=== PATIENT | male | born 1950 | race African-American/Black ===

== ENCOUNTER 2017-03-14 16:23 | Inpatient (IN) ==
[2017-03-14] MEDS ORDERED: HEPARIN 25,000 UNITS/D5W 25,000 UNIT/250 ML IV.SOLN IV SCH (18:45)
[2017-03-14 19:37] LABS: MANUAL DIFF NEEDED? NO
[2017-03-14 19:41] LABS: BASO% 0.5 % (0.0-0.8); EOS# 0.12 X1000 (0.0-0.7); EOS% 3.3 % (0.0-10.0); HEMATOCRIT 37.3 % (42.0-52.0); HEMOGLOBIN 12.5 g/dL (14.0-18.0); LYMPH# 1.19 X1000 (1.2-3.4); LYMPH% 32.3 % (20.5-51.1); MCH 32.6 PG (27-31); MCHC 33.5 g/dL (33-37); MCV 97.4 FL (81-99); MONO# 0.65 X1000 (0.11-0.59); MONO% 17.7 % (1.7-9.3); MPV 11.8 FL (7.4-10.4); NEUT% 46.2 % (42.2-75.2); PLT 133 X1000 (130-400); RBC 3.83 XMIL (4.7-6.1)
[2017-03-14] MEDS ORDERED: HEPARIN IV ONE (20:08)
[2017-03-14 20:16] LABS: ALBUMIN 3.6 g/dL (3.5-5.0); CALCIUM 8.7 mg/dL (8.8-10.2); POTASSIUM 4.1 mmol/L (3.5-5.1); TOTAL BILIRUBIN 0.28 mg/dL (0.20-1.00); TOTAL PROTEIN 7.2 g/dL (6.3-8.3)
[2017-03-14] MEDS ORDERED: FLOMAX PO SCH (21:00)
--- NOTE | 2017-03-14 22:07 | HISTORY AND PHYSICAL ---
CHIEF COMPLAINT: Right foot pain for the last 3 weeks. HISTORY OF PRESENT ILLNESS: He is a 67-year-old pleasant male who was evaluated in the emergency room last week. He was sent home on gout medicines. He had dialysis today. He came to my office today with right foot pain at resting. He had a discoloration, darkness on the right 2nd toe as well as 3rd and 4th toe. I could not feel any pulses on palpation. I could not hear even with the Doppler. X-rays of the right foot showed significant arteriosclerosis. He also had a uric acid level done which was normal. At this time, it looks like an ischemic foot based on the clinical exam. He is getting arterial Doppler studies as well as CT aortogram with runoff. Started on IV heparin. I also consulted Dr. Matthew for kidney dialysis. As a result, a hospital admission was warranted. PAST MEDICAL HISTORY: 1. BPH. 2. Chronic renal failure. End-stage kidney disease on dialysis. 3. Coronary artery disease. Chronically occluded right coronary artery. 4. Depression. 5. Type 2 diabetes. 6. Hyperlipidemia. 7. Hypertension. 8. Monoclonal gammopathy of unknown significance. 9. Foot drop on the left. 10. Peripheral vascular disease. PAST SURGICAL HISTORY: Stents in the heart, penile implant, AV fistula in the left forearm, cholecystectomy. MEDICATIONS: Bumex 1 mg p.o. b.i.d., isosorbide 30 mg daily, Lasix 40 daily, Flomax 0.4 mg at bedtime, Pravachol 40 mg daily, allopurinol 100 mg daily, aspirin 80 mg daily, Pletal 50 daily, Plavix 75 daily, PhosLo 667 daily, lisinopril 20 daily. Vitamin D 50,000 units once a week. ALLERGIES: Not known. SOCIAL HISTORY: . 5 children. Lives with daughter. No smoking. No alcohol. Retired. FAMILY HISTORY: Father of dementia at 88. Mom of heart disease 79. HEALTH MAINTENANCE: Flu vaccine 2005. Last prostate exam 2014. EGD and colonoscopy [address] Ortiz. REVIEW OF SYSTEMS: HEENT: No sore throat. Neck: No goiter. No lymphadenopathy. No bruits. Cardiopulmonary: No chest pain, shortness of breath, PND, orthopnea. GI: No nausea, vomiting, abdominal pain. Abdominal bloating got better after laparoscopic cholecystectomy. : History of hesitancy, frequency, controlled. Extremities: Right foot pain, decreased pulses. No claudication symptoms prior. No back pain. Neurologic: No focal symptoms or weakness or seizures. PHYSICAL EXAMINATION: VITAL SIGNS: Afebrile, vitals are stable. 5 feet 8, 156 pounds. HEENT: Atraumatic, normocephalic. Pupils equal, reactive to light. TMs are normal. Nose and throat within normal limits. NECK: Supple. No lymphadenopathy. No goiter. CHEST: Bilateral air entry. No rales, no wheezing. HEART: Sounds are regular. ABDOMEN: Belly is soft, nontender. Good bowel sounds. No masses palpable. RECTAL: Deferred. EXTREMITIES: Discoloration, pain right 2nd, 3rd, 4th toes, decreased pulses. Left foot is normal. NEUROLOGICAL: No obvious neurological deficits noted. INVESTIGATIONS: CBC: White cell count 3.6, hematocrit 37, platelets 133,000. SMA7: Creatinine 5. Glucose 127. LFTs were normal. X-ray of the right foot: No acute bony injury except arteriosclerosis noted. Uric acid 1.9. ASSESSMENT AND PLAN: 1. A 67-year-old male, admitted to the hospital with right ischemic foot based on the clinical symptoms. Plan is arterial Doppler studies in the morning. CT aortogram with runoff. In the meantime, aspirin, Pletal and IV heparin. 2. Benign prostatic hypertrophy, on Flomax. 3. Hyperlipidemia, on Pravachol. 4. Chronic ischemic cardiomyopathy. Continue on Prinivil, Plavix. 5. Chronic kidney disease, on calcium acetate and vitamin D. 6. Gout on allopurinol. 7. Coronary artery disease. Continue on Plavix, isosorbide. We will follow up. cc: Carlos Flores MD
[2017-03-14] MEDS: PRAVACHOL PO SCH (22:34)
[2017-03-15] MEDS ORDERED: HEPARIN 25,000 UNITS/D5W 25,000 UNIT/250 ML IV.SOLN IV SCH ×3 (05:36→19:00)
[2017-03-15 05:52] LABS: HDL 67 mg/dL (35-55); LDL 60 mg/dL; TRIGLYCERIDES 102 mg/dL (39-160); VLDL 20 mg/dL
[2017-03-15 07:43] LABS: ALBUMIN 3.6 g/dL (3.5-5.0); CALCIUM 10.3 mg/dL (8.8-10.2); POTASSIUM 4.8 mmol/L (3.5-5.1)
--- NOTE | 2017-03-15 08:16 | Diag Imaging Result Doc PS360 ---
CHEST-2 VIEWS - 03/15/2017 INDICATION: Hypoxia COMPARISON: 09/08/2016 FINDINGS: There are trace pleural effusions, decreased since the prior exam. Heart size and pulmonary vascularity is normal. No focal infiltrates, pneumothorax, or pleural effusion. IMPRESSION: Trace pleural effusions, improved from prior. Electronically signed by Truong Cardona 03/15/2017 8:13 AM
--- NOTE | 2017-03-15 09:12 | Diag Imaging Result Doc PS360 ---
EXAM: ANGIOGRAM/AORTA W/RUNOFF COMPARISON: CT abdomen and pelvis without contrast dated 02/12/2015. FINDINGS: There is diffuse aortoiliac atherosclerotic calcification that becomes severe at the distal aorta and at the iliac arteries. There is no aortic aneurysm. The common iliac arteries are heavily calcified. There is moderate stenosis throughout the common iliac arteries and extensive internal iliac artery stenosis. There is also extensive external iliac artery atherosclerotic disease with patchy moderate stenosis. There is patchy other sclerotic disease throughout the SMA with multifocal mild to moderate narrowing. However, remains patent. The GERMAN is patent. There is extensive atherosclerotic disease involving the renal arteries that is worst on the left where there is multifocal moderate to severe stenosis. There is celiac artery atherosclerotic calcification with focal moderate stenosis at its origin. There has been an interval cholecystectomy. There is uncomplicated diverticulosis coli. The abdomen and pelvis are essentially stable as compared to the previous study. Right: There is extensive atherosclerotic disease involving all of the arteries of the right lower extremity. There is intermittent moderate to severe stenosis involving the common femoral artery and superficial femoral artery and there is subtotal occlusion of the distal common femoral artery. There is extensive atherosclerotic disease involving the popliteal artery with multifocal severe stenosis and subtotal occlusion. The anterior tibial artery is completely occluded throughout its course. The posterior tibial artery is largely occluded and heavily calcified throughout a majority of its course. It appears to be reconstituted at the level of the ankle. The peroneal artery appears to remain patent throughout its course but is diminutive distally. Left: There is extensive ethmoid disease involving the arteries of the left lower extremity with intermittent moderate to severe stenosis throughout the courses of the common femoral artery and superficial femoral artery. There is patchy total two subtotal occlusion involving the distal superficial femoral artery with intermittent reconstitution. There is very severe popliteal artery atherosclerotic disease with multifocal subtotal to complete occlusion the anterior tibial artery becomes completely occluded at the distal calf and the dorsalis pedis is supplied via collateralization from the peroneal artery. The posterior tibial artery is heavily calcified and appears to be occluded throughout most of its course. It is probably reconstituted at the ankle. There is extensive peroneal artery atherosclerotic calcification with intermittent occlusion and reconstitution. IMPRESSION: Extremely severe aortoiliac and bilateral lower extremity atherosclerotic disease as detailed above. Electronically signed by Aj Alonzo 03/15/2017 9:10 AM
[2017-03-15] MEDS: PRINIVIL PO SCH (09:18)
[2017-03-15] MEDS: ROCALTROL PO SCH (09:18)
[2017-03-15] MEDS: PHOSLO PO SCH (09:18)
[2017-03-15] MEDS: PLETAL PO SCH (09:18)
[2017-03-15] MEDS: ZYLOPRIM PO SCH (09:18)
[2017-03-15] MEDS: ASPIRIN PO SCH (09:18)
[2017-03-15] MEDS: PLAVIX PO SCH (09:19)
--- NOTE | 2017-03-15 13:06 | CONSULTATION ---
DATE OF CONSULTATION: 03/15/2017 TIME SEEN: 0820. REASON FOR ADMISSION: Right foot pain for the past 3 weeks with decreased circulation. REASON FOR CONSULTATION: Assistance with medical management and end-stage renal disease. CONSULTING PHYSICIAN: Dr. Flores. HISTORY OF PRESENT ILLNESS: Mr. Palm is a 67-year-old, male who is known to our outpatient services for hemodialysis on Tuesday, Tuesday, and Tuesday at the [facility]. Patient has been followed by Dr. Flores in the past. Unfortunately, last week, he presented to the emergency room department for ongoing right foot pain. Patient was sent home on gout medications and felt that he was not getting any better. He presented to Dr. Flores's office yesterday afternoon and was found to have discoloration of his right foot and darkening of his 2nd, 3rd, and 4th toes on the right. These were cool to touch. They were no pulses palpable and not obtained per Doppler. He had an x-ray of the right foot indicating arterial sclerosis. Uric acid level was drawn which was normal. Subsequently, due to his ischemic foot on clinical evaluation, the patient was admitted to the hospital for further evaluation. He is currently getting arterial Doppler studies as well as a CT arteriogram runoff. Started on IV heparin during this hospitalization. PAST MEDICAL HISTORY: End-stage renal disease with hemodialysis on Tuesday, Tuesday, Tuesday at the [facility]. BPH, coronary artery disease, chronically occluded right coronary artery, depression, type 2 diabetes, hyperlipidemia, hypertension, monoclonal gammopathy of unknown significance, footdrop on the left, peripheral vascular disease, anemia of chronic disease, osteodystrophy of chronic disease. PREVIOUS SURGICAL HISTORY: Cardiac stents, penile implant, AV fistula to the left forearm, and a cholecystectomy. SOCIAL HISTORY: He is . He has children who are attentive to his care. He lives with his daughter. Denies any tobacco, alcohol, or illicit drug use. FAMILY HISTORY: Father of dementia at 88. Mother of heart disease at 79. CURRENT ALLERGIES: Listed as no known drug allergies. HOME MEDICATIONS: Bumex, isosorbide, Lasix, Flomax, Pravachol, allopurinol, aspirin, Pletal, Plavix, lisinopril, vitamin D 50. Patient also receives Rocaltrol, Ferrlecit, protein X, and IV iron as indicated at the outpatient clinic by labs. REVIEW OF SYSTEMS: Times 10 with pertinent positives listed above in the HPI. VITAL SIGNS: Most recent vital signs are temperature of 98 degrees, blood pressure 162/91, heart rate 106, respirations 20. He is on room air. Last recorded saturation is 100% . He has had 79 in. He has had 0 out with need for dialysis assistance on his routine basis. LABORATORY DATA: His labs this a.m., sodium 145, potassium 4.8, chloride is 101 , CO2 24, BUN 36, creatinine 6.3, glucose 71, anion gap of 20, calcium 10.3, phosphorus 6.9, albumin 3.6. His previous hemoglobin was 12.5, with hematocrit 37.3, white count 3.68, with a platelet count of 133,000. His PTT is 56.4. PHYSICAL EXAMINATION: General: This is a 67-year-old, male. He is currently resting in a chair. He has no acute distress. Skin: Warm and dry. HEENT: Normocephalic, atraumatic. Conjunctivae pink. He has ADRIANA. Mucous membranes moist. Neck: Supple. Trachea midline. No JVD. Cardiovascular: Regular rate and rhythm. He does have a soft systolic murmur. No gallop. Lungs: Clear to auscultation anteriorly. Equal excursion on room air. Abdomen: Soft, round, nontender. Positive bowel sounds. Genitourinary: Not inspected. Minimal void with dialysis assist. Extremities: Has no edema. His right foot has darkened area with pain to the 2nd, 3rd, and 4th toes. Decreased pulses, remain cool to touch. Left foot is warm to touch. Normal pulse. Neurological: Alert and oriented x3. ASSESSMENT AND PLAN: 1. End-stage renal disease. Patient is due for his routine dialysis treatment in the morning. He did stay for his full treatment yesterday. No need for intervention today. 2. Ischemic right foot. The patient is scheduled for a CT aortogram with a runoff. He has been started on aspirin, Pletal, and intravenous heparin. 3. Electrolytes and acid-base balance. These remain stable. 4. Anemia. This remains stable. I would like to thank you for allowing us to follow with this patient. Seen, data reviewed, discussed with Roby Washington on 03/15/17. I agree with the above assessment and plan of care. rg Dictated by ASTRID Latham for Samuel Matthew MD cc: ASTRID Latham MD Jagan Reddy, MD [facility]
[2017-03-15] MEDS: NORCO-5 PO PRN ×2 (15:36→22:44)
--- NOTE | 2017-03-15 18:44 | PROGRESS NOTE ---
DATE: 03/15/2017 SUBJECTIVE: Complaints of right foot pain. REVIEW OF SYSTEMS: Complaints of deafness and right foot pain. Rest of the review of systems none reported. PHYSICAL EXAMINATION: Vital Signs: Stable. HEENT: Within normal limits. Neck: Supple. No lymphadenopathy. Chest: Clear. Heart: Sounds are regular. Abdomen: Belly is soft, nontender. Good bowel sounds. Extremities: Right foot is 2nd and 3rd ischemic. No pulses palpable. INVESTIGATIONS: SMA 7: Creatinine 6.3, calcium 10.3. LDL is 60. HDL 67. CT aortogram with runoff diffuse calcified disease, poor downstream. Anterior tibial artery on the right side is occluded. Arterial flow studies: TBI 0.07, right is worse than the left side. ASSESSMENT AND PLAN: Right ischemic foot mostly distal vessel disease. I do not think it is amenable for revascularization. Consult with Dr. Dyson. Continue with IV heparin, aspirin and Pletal and keep the LDL less than 70. Hyperlipidemia on Pravachol excellent. For pain controluse the [place] as needed and chronic kidney disease on vitamin D and hyperphosphatemia on PhosLo and coronary artery disease, stable. Gout on allopurinol. I discussed with Dr. Matthew. Will also discuss with Dr. Dyson and will follow up. cc: Carlos Flores MD [facility]
[2017-03-15] MEDS: PRAVACHOL PO SCH (20:31)
[2017-03-15] MEDS: FLOMAX PO SCH (20:31)
[2017-03-16 07:05] LABS: CALCIUM 9.2 mg/dL (8.8-10.2); POTASSIUM 4.6 mmol/L (3.5-5.1)
[2017-03-16] MEDS ORDERED: NS 2,000 ML MISC PRN (07:18)
--- NOTE | 2017-03-16 07:32 | CONSULTATION ---
DATE OF CONSULTATION: 03/16/2017 CHIEF COMPLAINT: Blue discolored right 2nd toe. HISTORY: This 67-year-old, -Swedish gentleman, with chronic kidney disease and on dialysis, presents with a 3-4 week history of pain in the 2nd, 3rd, and 4th toes of the right foot with bluish discoloration of the 2nd toe. He has a history of CKD 5, and on dialysis with a left upper arm fistula. He has coronary artery disease, type 2 diabetes, hyperlipidemia, hypertension, monoclonal gammopathy, and benign prostatic hypertrophy. MEDICATIONS: Listed and include Plavix, Pletal and aspirin. ALLERGIES: He has no known drug allergies. SOCIAL HISTORY: He is . FAMILY HISTORY: Pertinent for dementia and heart disease. REVIEW OF SYSTEMS: Primarily pertinent for the foot pain on the right. PHYSICAL EXAMINATION: Vital Signs: He is afebrile. Heart rate 56, blood pressure 163/81. No cervical adenopathy. Lungs: Bilateral breath sounds. Heart: Regular rate and rhythm. Abdomen is soft. Femoral pulses are present. He has a left upper arm fistula that is functioning well. He has no pedal pulses. He has bluish discoloration of the right 2nd toe. No ulceration is seen in either foot. On his aortogram, he has significant calcification in his peripheral arteries. His lower extremity arterial PVRs are significantly diminished below the knee with essentially flat line with this dig level. INTERPRETATION: Significant peripheral vascular disease with lower extremity arterial calcification. I do not think that revascularization will assist him at this time. His prognosis regarding his feet are poor. I would not recommend any intervention at this time. Platelet inhibition is appropriate. Pain relief is appropriate. Thanks for the opportunity to see him. cc: MD Carlos Garza MD
[2017-03-16] MEDS: PHOSLO PO SCH (08:47)
[2017-03-16] MEDS: HEPARIN 25,000 UNITS/D5W 25,000 UNIT/250 ML IV.SOLN IV SCH ×2 (08:48→19:16)
--- NOTE | 2017-03-16 08:52 | PROGRESS NOTE ---
DATE: 03/16/2017 SUBJECTIVE: The patient complains of right foot pain. He was started on [place]. I did discuss with Dr. Dyson. He did review the arterial flow studies as well as the CT angiographic. He is going for dialysis today. REVIEW OF SYSTEMS: Other than right foot pain, stable. PHYSICAL EXAMINATION: Vital Signs: On examination, he is afebrile, pulse is 56, blood pressure is 160/80, 99% on room air. HEENT: Examination within normal limits. Neck: Supple. No lymphadenopathy. Chest: Clear. Heart: Heart sounds are regular. Extremities: Right foot with decreased redness, pain, discoloration. LABORATORY DATA: SMA 7: Sodium 135, potassium 4.6, chloride 96, BUN 47, creatinine 7.5, glucose 115. LDL is 60. ASSESSMENT AND PLAN: 1. Right ischemic foot, not amenable for revascularization as per Dr. Dyson. Continue medical management. We will hold off with any further surgeries. Clinically, he is improving. Continue on [place], aspirin, Pletal, and intravenous heparin. 2. Chronic kidney disease, on dialysis. 3. Hopefully, he will be discharged on Tuesday. 4. Level of documentation is 25 minutes. cc: Carlos Flores MD
[2017-03-16] MEDS ORDERED: EMLA CREAM TOP ONE (09:22)
--- NOTE | 2017-03-16 10:02 | VASCULAR LAB ---
PROCEDURE NAME: Arterial Bilateral Legs - 03/15/2017 REFERRING PHYSICIAN: Carlos Flores MD. INTERPRETING PHYSICIAN: Jair Dyson MD. INDICATION: The patient has a discolored right second toe with pain. The patient is diabetic, hypertensive, smokes, and has kidney failure. FINDINGS: The right brachial pressure is 192. The pressures in the legs are artificially elevated. The PVRs are mildly diminished beginning at the calf level and flatline at the toe level. The pressures in the toes are very low, in the right great toe is 16 and in the left 28. The right toe-brachial index is 0.09, left toe-brachial index 0.15. INTERPRETATION: This study is consistent with severe peripheral vascular disease with decreased flow from the knee down. This flow is inadequate to heal wounds on either foot. cc: MD Carlos Garza MD
--- NOTE | 2017-03-16 10:15 | PROGRESS NOTE ---
DATE: 03/16/2017 TIME SEEN: 0815. SUBJECTIVE: Mr. Palm is resting quietly in bed. He is sitting up eating his breakfast. He denies chest pain or increased work of breathing. States that his foot does not hurt when it is elevated. Otherwise it throbs and has severe aching to it. OBJECTIVE: Vital signs: His most recent vital signs, temperature 97.7 degrees , blood pressure 163/81, heart rate 56, respirations 18. He is on room air. Last recorded saturation 99%. He has had 255 in, 400 out per void. Labs: Sodium 135, potassium 4.6, chloride 96, CO2 24, BUN 47, creatinine 7.5, glucose 115, anion gap 15, calcium 9.2, phosphorus 7.2, albumin 3. His hemoglobin was 12.5 on the 15th. PHYSICAL EXAMINATION: General: This is a 67-year-old male. He is currently sitting in bed. He is in no acute distress. Skin: Warm and dry. HEENT: Normocephalic, atraumatic. Conjunctivae pink. He has ADRIANA. Mucous membranes moist. Neck: Supple. Trachea midline. No JVD. Cardiovascular: Regular rate and rhythm. He has a soft systolic murmur. No gallop appreciated. Lungs: Clear to auscultation anteriorly. Equal excursion. On room air. Abdomen: Round, soft, nontender. Positive bowel sounds. Genitourinary: Not inspected. Minimal void with dialysis assist. Extremities: Have no edema. He has an AV fistula to the left upper arm. Palpable thrill. Lower extremities have no edema. Right foot has darkened area to the 2nd, 3rd, and 4th toe. Decreased pulses. Remains cool to touch. Left foot remains warm to touch. Good pulses. Neurological: Alert and oriented x3. ASSESSMENT AND PLAN: 1. End-stage renal disease. Patient is due for his routine dialysis treatment today. We will place him on a 2 K bath. He is to dialyze for 3.5 hours. We will attempt to pull him to his dry weight. He continues on IV heparin. We will hold his heparin on dialysis secondary to having another source. 2. Electrolytes and acid-base balance. These are stable. 3. Anemia. This is stable. 4. Ischemic right foot. This is currently being followed by Dr. Dyson and Dr. Flores. I would like to thank you for allowing us to follow with this patient. Seen, data reviewed, discussed with Roby Washington on 03/16/17. I agree with the above assessment and plan of care. rg Dictated by ASTRID Latham for Samuel Matthew MD cc: ASTRID Latham MD Jagan Reddy, MD [facility]
[2017-03-16] MEDS ORDERED: NS 2,000 ML ONE (12:08)
[2017-03-16] MEDS ORDERED: HEPARIN ONE (12:08)
[2017-03-16] MEDS: PLAVIX PO SCH (16:48)
[2017-03-16] MEDS: ASPIRIN PO SCH (16:48)
[2017-03-16] MEDS: ZYLOPRIM PO SCH (16:48)
[2017-03-16] MEDS: ROCALTROL PO SCH (16:48)
[2017-03-16] MEDS: PRINIVIL PO SCH (16:48)
[2017-03-16] MEDS: PLETAL PO SCH (16:48)
[2017-03-16] MEDS: NORCO-5 PO PRN (18:10)
[2017-03-16] MEDS: FLOMAX PO SCH (22:15)
[2017-03-16] MEDS: PRAVACHOL PO SCH (22:15)
[2017-03-17] MEDS: NORCO-5 PO PRN ×2 (06:44→16:56)
[2017-03-17 06:45] LABS: ALBUMIN 3.3 g/dL (3.5-5.0); POTASSIUM 4.3 mmol/L (3.5-5.1)
[2017-03-17] MEDS: PRINIVIL PO SCH (08:35)
[2017-03-17] MEDS: ASPIRIN PO SCH (08:35)
[2017-03-17] MEDS: ROCALTROL PO SCH (08:35)
[2017-03-17] MEDS: ZYLOPRIM PO SCH (08:35)
[2017-03-17] MEDS: PLETAL PO SCH (08:35)
[2017-03-17] MEDS: PHOSLO PO SCH (08:35)
[2017-03-17] MEDS: PLAVIX PO SCH (08:36)
--- NOTE | 2017-03-17 15:44 | PROGRESS NOTE ---
DATE: 03/17/2017 TIME SEEN: 0845. SUBJECTIVE: Mr. Palm is resting in bed. He denies any chest pain. No increased work of breathing. PHYSICAL EXAMINATION: Vital Signs: Most recent vital signs are temperature 98.4 degrees, blood pressure 158/76, heart rate 61, respirations 18. He is on room air. Last recorded saturation 100%. He has had 225 in. He has had 2 L off from dialysis. General: This is a 67-year-old male. He is currently sitting on the side of the bed. He is in no acute distress. Skin: Warm and dry. HEENT: Normocephalic, atraumatic. Conjunctivae pink. He has ADRIANA. Mucous membranes moist. Neck: Supple. Trachea midline. No JVD. Cardiovascular: Regular rate and rhythm. He has a soft systolic murmur. No gallop appreciated. Lungs: Clear to auscultation anteriorly. Equal excursion on room air. Abdomen: Round, soft, nontender. Positive bowel sounds. Genitourinary: Not inspected. Minimal void with dialysis assist. Extremities: No edema. No clubbing or cyanosis. AV fistula to the left upper arm, palpable thrill, dry and intact. Lower extremities have no edema. Right foot continues darkened area to the 2nd, 3rd, and 4th toe. Decreased pulses. Remains cool to touch. Left foot with 1+ pulse. Neurological: Alert and oriented x3. LABORATORY DATA: Sodium 135, potassium 4.3, chloride 95, CO2 of 28, BUN 32, creatinine 6.3, glucose 64, anion gap 12, calcium 9, phosphorus 5.6, albumin 3.3. His hemoglobin was 12.5 on 03/14/2017. ASSESSMENT AND PLAN: 1. End-stage renal disease. Patient is due for his routine dialysis treatment in the a.m. Otherwise, no further intervention. He remains on heparin. 2. Electrolytes and acid-base balance. These have remained stable. 3. Anemia. This remains stable. 4. Ischemic right foot. This is followed by the primary care team and Dr. Dyson. 5. Ongoing bleeding JANAK fistula. Will leave a clamp in place for 1-[address] Dyson but no intervention needed at this time. rg I would to thank you for allowing us to follow with this patient. Seen, data reviewed, discussed with Roby Washington on 03/17/17. I agree with the above assessment and plan of care. rg Dictated by ASTRID Latham for Samuel Matthew MD cc: ASTRID Latham MD Jagan Reddy, MD [facility]
--- NOTE | 2017-03-17 20:13 | PROGRESS NOTE ---
DATE: 03/17/2017 SUBJECTIVE: Complaints of right foot pain slowly improving on pain medicines. Discussion with Dr. Dyson. REVIEW OF SYSTEMS: None reported. OBJECTIVE: Vital Signs: Stable. HEENT: Within normal limits. Neck: Supple. No lymphadenopathy. No goiter. Chest: Clear to auscultation. Heart: Sounds are regular. Abdomen: Belly is soft, nontender. Good bowel sounds. No masses palpable. Extremities: Her right foot discoloration is improving, decreased pulses. INVESTIGATIONS: SMA 7, sodium 135, potassium 4.3, BUN 32, creatinine 6.3. ASSESSMENT AND PLAN: Right ischemic foot. Discontinue medical treatment. Not a candidate for revascularization. Discussed with the patient. Will be discharged tomorrow after dialysis. Discontinue heparin. Continue present medical therapy. DOCUMENTATION: 15 minutes. cc: Carlos Flores MD
[2017-03-17] MEDS: PRAVACHOL PO SCH (22:23)
[2017-03-17] MEDS: FLOMAX PO SCH (22:23)
[2017-03-18] MEDS ORDERED: HEPARIN IV PRN (06:52)
[2017-03-18] MEDS ORDERED: NS 2,000 ML MISC PRN (06:52)
[2017-03-18] MEDS ORDERED: TIGHT: 0.2 ML/HR MISC PRN (06:52)
[2017-03-18] MEDS ORDERED: NS 2,000 ML ONE (08:15)
[2017-03-18] MEDS: NORCO-5 PO PRN (09:06)
[2017-03-18 10:28] LABS: ALBUMIN 3.6 g/dL (3.5-5.0); CALCIUM 9.3 mg/dL (8.8-10.2); POTASSIUM 4.7 mmol/L (3.5-5.1)
--- NOTE | 2017-03-18 14:20 | PROGRESS NOTE ---
DATE: 03/18/2017 SUBJECTIVE: He expects discharge today. No new complaints today. Pain in his foot is improving but slowly. OBJECTIVE: Vital Signs: Blood pressure 187/83, heart rate 60. Afebrile General: He is a elderly man, no acute distress. Skin: Warm and dry. Eyes: Conjunctivae are pink. Heart: Regular without gallops. Lungs: Have equal breath sounds. No crackles or wheezes. Abdomen: Soft and nontender. Bowel sounds are present. Extremities: Have no edema, clubbing, or cyanosis. Darkening of the toes is improved though the right 2nd toe remains somewhat darkened and tender. IMPRESSION: 1. End-stage kidney disease. He will have his routine hemodialysis today prior to discharge. 2. Electrolytes/acid base/anemia. All in target. 3. Hypertension, above target but has waxed and waned during hospitalization. No changes today. 4. Right foot ischemia. He will be managed with pain medicine. cc: MD Carlos Acuña MD
[2017-03-18] MEDS: PHOSLO PO SCH (14:22)
[2017-03-18] MEDS: PLETAL PO SCH (14:22)
[2017-03-18] MEDS: ASPIRIN PO SCH (14:22)
[2017-03-18] MEDS: ZYLOPRIM PO SCH (14:22)
[2017-03-18] MEDS: PLAVIX PO SCH (14:22)
[2017-03-18] MEDS: PRINIVIL PO SCH (14:22)
[2017-03-18] MEDS: ROCALTROL PO SCH (14:23)
[2017-03-18 15:03] VITALS: BP 134/70
--- NOTE | 2017-03-19 18:41 | DISCHARGE SUMMARY ---
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 SECONDARY DIAGNOSES: 1. Chronic renal failure with end-stage kidney disease on hemodialysis with left arteriovenous graft. 2. Coronary artery disease with chronically occluded right coronary artery. 3. Type 2 diabetes. 4. Hyperlipidemia. 5. Hypertension. 6. Monoclonal gammopathy of unknown significance. 7. Peripheral vascular disease. 8. History of footdrop on the left side. 9. Other problems, stents in the heart, penile implant, arteriovenous graft in the left forearm, cholecystectomy. CONSULTANTS: Dr. Matthew for dialysis and Dr. Dyson for right ischemic foot. BRIEF HISTORY: Please see the H and P that was done on 03/14/2017. In brief, he is a 67-year-old male with the above problems who was admitted to the hospital from my office with right foot pain, mostly 2nd, 3rd and 4th toes, slightly discolored. I could not feel any pulses. He was treated initially with gout and cellulitis. Uric acid level 1.9. HOSPITAL COURSE: He was given aspirin, Pletal and IV heparin. In the meantime , patient had a CT aortogram with runoff as well as extremity arterial Doppler studies were done. It showed anterior tibial artery was occluded. There is no blood flow in the dorsalis pedis on both feet. Dr. Dyson felt that he is not a candidate for revascularization. Continue medical management. He got better. Pain is adequately controlled with pain medicines. Results were discussed with the patient. Heparin was discontinued. LABORATORIES: CBC: White cell count 3.6, hematocrit 37, platelets 133,000. SMA 7: Sodium 137, potassium 4.7, chloride 96, BUN 39, creatinine 7.4, glucose 131, triglycerides 102, cholesterol 147, LDL 60, HDL 61. Chest x-ray was stable. Arterial flow studies are left toe brachial index 0.1, right toe brachial index is 0.09. The study is consistent with severe peripheral vascular disease with decreased flow from the knee down. This flow is inadequate to heal the wounds in either foot. CT angiogram with runoff extremely severe arteriosclerosis bilateral lower extremity atherosclerotic disease. DISCHARGE INSTRUCTIONS ARE FOLLOWS: Continue the hemodialysis through Dr. Matthew, aspirin 81 mg daily, Pravachol 40 mg daily, Plavix 75 mg daily, allopurinol 100 mg daily, Pletal 50 mg daily, lisinopril 20 mg daily, isosorbide 30 mg daily, calcium acetate 2 tablets p.o. a.c., Bystolic 2.5 mg daily, Celexa 20 mg daily, Ultracet 1 tablet q.6 hours as needed for pain. Follow up in my office next week as well as Dr. Dyson and Dr. Matthew. cc: MD Carlos Acuña MD Robert C. Walker, MD MTDD
== END 2017-03-18 15:11 | disposition home or self-care (01) ==
LOC: DIRADM 16:23 → 3N 18:09
PROVIDERS: ADMIT Internal Medicine; ATTEND Internal Medicine